=== PATIENT | male | born 1945 | race Caucasian/White ===

== ENCOUNTER → 2018-04-02 | Outpatient (CLI) | payer MEDICARE, OTHER ==
--- NOTE | 2018-04-02 13:49 | MRI ---
EXAM DESCRIPTION: Lumbar Spine w/o Contrast CLINICAL HISTORY: 72 years Male, RADICULOPATHY COMPARISON: None available. TECHNIQUE: Multiplanar multiecho imaging of the lumbar spine was performed without intravenous contrast administration. FINDINGS: There is straightening of the normal lordotic curvature of the lumbar spine. The vertebral body heights are well-maintained with no acute compression deformity. Multilevel intervertebral disc space narrowing is noted. The conus medullaris terminates at T12-L1 intervertebral disc space. The visualized spinal cord demonstrates no signal abnormality. Grade 1/2 anterolisthesis of L5 or S1 secondary to bilateral pars and articular is defects. L1-L2: No disc bulge. No significant canal stenosis or neural foraminal narrowing. L2-L3: No disc bulge. No significant canal stenosis or neural foraminal narrowing. L3-L4: No disc bulge. No significant canal stenosis or neural foraminal narrowing. L4-L5: Mild bilateral neural foraminal narrowing is noted secondary to facet arthropathy. L5-S1: No significant canal stenosis. There is moderate to severe bilateral neural foraminal narrowing. The visualized prevertebral and paravertebral soft tissues appear unremarkable. IMPRESSION: Grade 1/2 anterolisthesis of L5 over S1 secondary to bilateral pars interarticularis defects. There is resultant moderate to severe bilateral neural foraminal narrowing at this level. Electronically signed by: Tatianna Morgan MD 04/02/2018 1:47 PM CDT
== END ==
LOC: MRI 06:51
DX: M54.16 Radiculopathy, lumbar region (principal); M43.16 Spondylolisthesis, lumbar region

== ENCOUNTER → 2019-09-08 | Outpatient (CLI) | payer MEDICARE, OTHER | LOC: GMAL 10:40 | PROVIDERS: ATTEND Family Medicine | DX: E53.8 Deficiency of other specified B group vitamins (principal); E55.9 Vitamin D deficiency, unspecified; R53.83 Other fatigue; E11.9 Type 2 diabetes mellitus without complications; Z12.5 Encounter for screening for malignant neoplasm of prostate; Z79.899 Other long term (current) drug therapy | CPT/HCPCS: 82306; 82607; 84443; G0103 ==

== ENCOUNTER → 2019-09-14 | Outpatient (CLI) | payer MEDICARE, OTHER ==
--- NOTE | 2019-09-15 07:42 | US ---
EXAM DESCRIPTION: Liver: ULTRASOUND. CLINICAL HISTORY: Abnormal results of liver function studies COMPARISON: None. TECHNIQUE: Transabdominal scannin-dimensional and Doppler modes. FINDINGS: Gallbladder: Surgically absent. No fluid in the gallbladder fossa. Non-tender with transducer pressure. Common bile duct: caliber 6.6 mm within normal limits post cholecystectomy. Liver: Diffuse increased echogenicity; contour liver capsule smooth where seen. Hypoechoic 1.2 x 0.9 cm mass in the left kidney with echogenicity focus in the anterior aspect. Not vascular. No fluid around the liver. Intrahepatic biliary ducts normal caliber. Doppler hepatopedal flow portal vein. 1.2 cm normal caliber. Long axis right lobe 15.7 cm. Pancreas: normal size and echogenicity. Duct not seen. Right kidney: long axis measures 11.0 cm. Increased cortical echogenicity but less than that of the liver. Normal cortical thickness. . 5.2 x 5.0 x 4.8 cm anechoic circumscribed mass with thin balbuena and posterior acoustic enhancement on the upper pole a second cyst measures less than a centimeter. The larger cyst also demonstrates internal echoes. No hydronephrosis. Aorta proximal: 2.0 cm normal caliber. IMPRESSION: 1. Previous cholecystectomy. Nontender. Common bile duct normal caliber postcholecystectomy. 2. Fatty liver normal size. 1.2 cm hypoechoic mass with calcification or echogenic material. 5.2 cm renal mass with internal echoes. Consider follow-up CT scan for liver and kidney noncontrast and triple phase postcontrast protocol. 3. Pancreas unremarkable. Normal caliber proximal aorta and IVC. Electronically signed by: Amandeep Sampson MD 09/15/2019 7:41 AM CDT
== END ==
LOC: US 08:07
PROVIDERS: ATTEND Family Medicine
DX: R94.5 Abnormal results of liver function studies (principal); K76.0 Fatty (change of) liver, not elsewhere classified; N28.9 Disorder of kidney and ureter, unspecified; Z90.49 Acquired absence of other specified parts of digestive tract

== ENCOUNTER → 2019-11-04 | Outpatient (CLI) | payer MEDICARE, OTHER ==
--- NOTE | 2019-11-05 13:40 | MRI ---
EXAM DESCRIPTION: Lumbar Spine w/o Contrast : Magnetic Resonance Imaging. CLINICAL HISTORY: LOW BACK PAIN COMPARISON: MRI scan lumbar spine without contrast March 2018. TECHNIQUE: Multiplanar, multiple standard sequences, non contrast MRI, lumbar spine. FINDINGS: L5-S1: The disc is well visualized on axial T2 series 501, image 3. Marked space loss and endplate moderate reactive changes and defects. Grade 2 anterolisthesis 11 mm with no significant change since the prior study. Bilateral L5 pars interarticulares spondylolysis is stable. Posterior height of the L5 vertebral body is 2.2 cm compared to 3 cm anteriorly this is stable since the prior study. Residual marrow edema in the posterior L5 vertebral body. Posterior disc remnant with minimal bulge is uncovered by the L5 vertebral body but no significant increase in bulging since the prior study. Minimal degenerative hypertrophic changes in the posterior elements: Facet joints and flavum ligaments, mostly in the joints. Canal is patent. Bilateral foraminal stenosis and compromise of the exiting L5 nerves is stable. Mild narrowing of bilateral subarticular recesses. L4-L5: Minimal disc desiccation with disc space preserved. No significant bulging. Mild degenerative hypertrophic changes in the posterior elements mostly in the ligaments. No canal stenosis. Mild to moderate bilateral foraminal narrowing. L3-L4: Normal signal in the disc with disc space preserved. No bulging. Minimal degenerative hypertrophic changes in the posterior elements. Mild narrowing of the left foramen and moderate narrowing of the right foramen. L2-L3: Disc space preserved and normal signal in the disc. Mild bilateral degenerative hypertrophic changes in the posterior elements. Canal is patent. Bilateral mild foraminal narrowing. L1-L2: Disc with normal signal and disc space preserved. Mild hypertrophic degenerative changes of the posterior elements but canal is patent. Bilateral foramina are patent. T12-L1: Disc with normal signal and disc space preserved. Anterior hypertrophic endplate margins and minimal disc bulge. No posterior bulge. Mild degenerative hypertrophy of the posterior elements but no canal stenosis. Bilateral foramina are patent. No scoliosis. Paravertebral soft tissues unremarkable. Distal cord normal signal and caliber. Normal marrow signal in the remaining vertebral bodies and the posterior elements. Vertebral bodies are not compressed at any level. IMPRESSION: 1. Significant disc desiccation and endplate reactive changes at L5-S1 with bilateral pars interarticulares L5 spondylolysis and grade 2 anterolisthesis. Stable since the prior study. Also loss of height of the posterior L5 vertebral body. No change from the prior study. Bilateral foraminal stenosis and compromise of the L5 nerve roots also stable since the prior study. 2. Minimal disc desiccation and disc space preserved at L4-L5 with no significant bulging. Bilateral mild to moderate foraminal narrowing. No change from the prior study. Remaining discs are unremarkable, though posterior elements show degenerative hypertrophy. No canal or foraminal stenosis at the remaining levels. Stable since the prior study. Electronically signed by: Amandeep Sampson MD 11/05/2019 1:38 PM [facility]
== END ==
LOC: MRI 07:33
PROVIDERS: ATTEND Family Medicine
DX: M51.36 Other intervertebral disc degeneration, lumbar region (principal); M51.37 Other intervertebral disc degeneration, lumbosacral region; M47.896 Other spondylosis, lumbar region; M48.061 Spinal stenosis, lumbar region without neurogenic claudication

== ENCOUNTER → 2019-11-07 | Outpatient (CLI) | payer MEDICARE, OTHER ==
--- NOTE | 2019-11-07 10:50 | MRI ---
EXAM DESCRIPTION: Cervical Spine CLINICAL HISTORY: CERVICAL RADICULOPATHY COMPARISON: None Available TECHNIQUE: Multiplanar multi sequence noncontrast imaging FINDINGS: There is good alignment of the cervical spine. There is no vertebral abnormality. Craniocervical junction and the cord are unremarkable. No extra spinous abnormality is detected. C2-3: Unremarkable. C3-4: The disc is desiccated. A central 2.2 mm disc bulge is evident. No neural foraminal disease of significance is detected. C4-5: The disc is desiccated. Central annular bulge is evident. No neural foraminal disease of significance is observed. Some facet joint arthritis is seen. C5-6: The disc is desiccated. Loss of disc height is observed. Endplate degenerative changes are observed. Anterior osteophyte formation is observed. A central annular bulge is noted. The neural foramina are preserved. C6-7: The disc is desiccated. Loss of disc height is observed. A central annular bulge is evident. Bilateral neural foraminal narrowing is observed as result of facet joint arthritis. C7-T1: Unremarkable. IMPRESSION: 1. A central 2.2 mm disc bulge is evident at the C3-4 level. 2. Central annular bulges are seen at the C4-5 C5-6 and C6-7 levels. 3. Neural foraminal narrowing is observed at the C6-7 level as result of facet joint arthritis. Electronically signed by: Surya Reyna MD 11/07/2019 10:48 AM [facility]
== END ==
LOC: MRI 07:38
PROVIDERS: ATTEND Family Medicine
DX: M50.81 Other cervical disc disorders, high cervical region (principal); M50.821 Other cervical disc disorders at C4-C5 level; M50.822 Other cervical disc disorders at C5-C6 level; M50.823 Other cervical disc disorders at C6-C7 level; M46.92 Unspecified inflammatory spondylopathy, cervical region

== ENCOUNTER → 2019-12-20 | Outpatient (CLI) | payer MEDICARE, OTHER ==
--- NOTE | 2019-12-21 09:44 | CT ---
EXAM DESCRIPTION: Abdomen w/wo Contrast CLINICAL HISTORY: 74 years Male, RENAL AND LIVER LESIONS TECHNIQUE: This exam was performed according to our departmental dose-optimization program, which includes automated exposure control, adjustment of the mA and/or kV according to patient size and/or use of iterative reconstruction technique. COMPARISON: 09/14/2019 FINDINGS: Visualized lung bases are grossly unremarkable. Hepatic steatosis. Small benign scattered hepatic cysts and hypoattenuating lesions which are too small to definitively characterize. There is a 1 cm nonenhancing left hepatic lobe cyst compatible with the findings on the prior ultrasound. No suspicious hepatic lesion identified. No biliary dilatation. The portal vein is patent. Cholecystectomy. The spleen, pancreas and adrenal glands are unremarkable. Nonenhancing exophytic interpolar right renal cyst measuring 1.3 cm. Exophytic superior right renal cyst measuring 5.3 cm, with a thin internal septation and associated linear calcifications. No solid enhancing renal mass identified. Symmetric renal parenchymal enhancement. No hydronephrosis. No urolithiasis. No urothelial lesion identified. Visualized bowel is normal in caliber without evidence of obstruction or focal inflammatory change. Normal appendix. No adenopathy. No focal fluid collection. No free air. Normal caliber abdominal aorta. Mild diffuse atherosclerotic disease. No acute or suspicious osseous abnormality. Scattered degenerative changes present. Bilateral L5 pars defects with associated anterolisthesis. IMPRESSION: 1. Bosniak 2F right renal cystic lesion measuring 5.3 cm. 2. Nonenhancing hepatic cysts and hypoattenuating lesions which are too small to definitively characterize. No suspicious hepatic lesion identified. 3. Steatosis. Electronically signed by: Tra Torres MD 12/21/2019 9:42 AM [employer]
== END ==
LOC: US 09:33
PROVIDERS: ATTEND Family Medicine
DX: N28.89 Other specified disorders of kidney and ureter (principal); K76.89 Other specified diseases of liver

== ENCOUNTER → 2020-09-26 | Outpatient (CLI) | payer MEDICARE, OTHER | LOC: GMAL 16:50 | PROVIDERS: ATTEND Family Medicine | DX: E53.8 Deficiency of other specified B group vitamins (principal); E03.9 Hypothyroidism, unspecified; E55.9 Vitamin D deficiency, unspecified; E11.9 Type 2 diabetes mellitus without complications; I10 Essential (primary) hypertension; E78.2 Mixed hyperlipidemia ==

== ENCOUNTER → 2020-10-30 | Outpatient (CLI) | payer MEDICARE, OTHER | LOC: GMAL 10:53 | PROVIDERS: ATTEND Family Medicine | DX: E29.1 Testicular hypofunction (principal) ==

== ENCOUNTER 2020-11-12 07:45 | Emergency (ER) | payer MEDICARE, OTHER ==
[2020-11-12] MEDS ORDERED: KETOROLAC TROMETHAMINE INJ 60 MG/2 ML VIAL IM ONE (08:15)
[2020-11-12] MEDS ORDERED: predniSONE 20 MG TAB PO ONE (08:15)
[2020-11-12] MEDS ORDERED: COLCHICINE 0.6 MG TAB PO ONE (08:16)
--- NOTE | 2020-11-12 08:20 | RAD ---
EXAM DESCRIPTION: Ankle,Left 2 Views CLINICAL HISTORY: 75 years Male, pain 5 d, 1st metatarsal, ankle COMPARISON: None. FINDINGS: Two views of the left ankle show no acute fracture or malalignment. Vascular calcifications. Calcaneal spurring. The tibiotalar joint space and talar dome are well-maintained. IMPRESSION: Vascular calcification and calcaneal spurring without acute left ankle abnormality. Electronically signed by: Catalino Chinchilla MD 11/12/2020 8:18 AM [facility]
--- NOTE | 2020-11-12 08:21 | RAD ---
EXAM DESCRIPTION: Foot,Left 3 Views CLINICAL HISTORY: 75 years Male, pain 5 d, 1st metatarsal, ankle COMPARISON: None. FINDINGS: Three views of the left foot show no acute fracture or malalignment. Vascular calcifications. Calcaneal enthesophyte formation at the plantar fascia and Achilles tendon insertions. First MTP joint space narrowing. No radiopaque foreign body or soft tissue gas. IMPRESSION: Degenerative changes, vascular calcifications and calcaneal spurring. No acute left foot abnormality. Electronically signed by: Catalino Chinchilla MD 11/12/2020 8:19 AM [facility]
--- NOTE | 2020-11-12 08:35 | ED.PDOC ---
History of Present Illness - General Chief Complaint: General Stated Complaint: left foot pain X 5 days Time Seen by Provider: 11/12/20 07:46 Source: patient Exam Limitations: no limitations - History of Present Illness Initial Comments: The patient is a 75-year-old male presented emergency room secondary to pain in his left foot. He has had pain for about 5 or 6 days. He reports that he believes it started after he stepped on a rock around that timeframe. Questionable history of gout in the past. He is a diabetic. He does have poor renal function chronically. No fever. He does have the worst of the pain at the first metatarsophalangeal joint. There is significant erythema and exquisite tenderness to palpation there. A cool compress made the pain worse. He also has some pain around the ankle bilaterally on the left as well. No erythema however and no significant swelling. Pain is worse with movement of both. Timing/Duration: 1 week Severity: severe Improving Factors: immobilization Worsening Factors: movement Associated Symptoms: denies symptoms Allergies/Adverse Reactions: Allergies Tamsulosin [From Flomax] Allergy (Verified 11/12/20 08:11) Home Medications: Ambulatory Orders Anastrozole [Arimidex] 1 mg PO WKLY 11/12/20 Aspirin [Aspirin 81 Low Dose] 81 mg PO DAILY 11/12/20 Doxazosin Mesylate [Doxazosin] 2 mg PO TID 11/12/20 Glipizide 10 tablet PO BID 11/12/20 Insulin Glargine [Lantus Solostar] 20 unit SUBCU DAILY 11/12/20 Levothyroxine Sodium 88 mcg PO DAILY 11/12/20 Pravastatin Sodium 20 mg PO WKLY 11/12/20 predniSONE [Prednisone] 20 mg PO DAILY #5 tab 11/12/20 Review of Systems - Review of Systems Constitutional: States: no symptoms reported EENTM: States: no symptoms reported Respiratory: States: no symptoms reported Cardiology: States: no symptoms reported Gastrointestinal/Abdominal: States: no symptoms reported Genitourinary: States: no symptoms reported Musculoskeletal: States: see HPI Skin: States: see HPI Neurological: States: no symptoms reported Endocrine: States: no symptoms reported All other Systems: No Change from Baseline Past Medical History (General) - Patient Medical History Hx Seizures: No Hx Stroke: No Hx Dementia: No Hx Asthma: No Hx of COPD: No Hx Cardiac Disorders: No Hx Congestive Heart Failure: No Hx Pacemaker: No Hx Hypertension: Yes Hx Thyroid Disease: No Hx Diabetes: Yes Hx Gastroesophageal Reflux: No Hx Renal Disease: No Hx Cancer: No Hx of HIV: No Hx MRSA: No Surgical History: tonsillectomy - Vaccination History Hx Tetanus, Diphtheria Vaccination: Yes Hx Influenza Vaccination: Yes Hx Pneumococcal Vaccination: Yes - Social History Hx Tobacco Use: Yes Hx Chewing Tobacco Use: Yes Hx Alcohol Use: Yes Family Medical History - Family History Mother Family History: Unknown Living Status: Unknown Physical Exam - Physical Exam General Appearance: Alert, No apparent distress Eye Exam: bilateral normal Ears, Nose, Throat: hearing grossly normal, normal pharynx Neck: non-tender, supple Respiratory: no respiratory distress, no accessory muscle use Cardiovascular/Chest: normal peripheral pulses, no edema Peripheral Pulses: radial,right: 2+, radial,left: 2+, dorsalis pedis,right: 2+, dorsalis pedis,left: 2+ Gastrointestinal/Abdominal: non tender, soft Rectal Exam: deferred Extremity: no calf tenderness, normal capillary refill, other - See history of present illness Neurologic: pay per click strategist II-XII nml as tested, alert, normal mood/affect, oriented x 3 Skin Exam: normal color - Except for erythema around the first metatarsophalangeal joint of the left foot Comments: Vital Signs - 24 hr 11/12/20 08:02 Temperature 98.6 F Pulse Rate [ 107 H Left Radial] Respiratory 20 Rate Blood Pressure 153/110 [Right Arm] O2 Sat by Pulse 94 L Oximetry Progress - Progress Progress: 11/12/20 08:36 The patient is a 75-year-old male presented emergency room secondary to pain in the left foot and ankle of about 5 days duration. While he may have a mild sprain from an injury 5 days ago, I believe most of his pain is likely from gout. He needs to increase his fluid intake. He needs to keep the foot warm. Does need to do range of motion exercises. He needs to avoid any diuretics or water pills for the next few days. He is given a dose of colchicine and Toradol as well as a dose of prednisone here. The patient is a diabetic so he does need to monitor his blood sugars closely and adjust medications if needed. He will be written for 5 days of low-dose oral prednisone. I do want him to follow-up with his primary care doctor at the end of the week for repeat evaluation. ER warnings are given. Ambulate carefully. X-rays are reassuring. helder [email or web address] - Results/Orders Results/Orders: X-ray of the left ankle and foot show no evidence of acute pathology. There are significant arthritic changes and calcifications. - EKG/XRAY/CT CT Ordered: No CT Interpretation Call Back: No Departure - Departure Clinical Impression: Gout attack Qualifiers: Gout site: foot Disposition: Discharge to Home or Self Care Condition: Fair Departure Forms: ED Discharge - Pt. Copy, Patient Portal Self Enrollment Instructions: Gout (DC) Diet: diabetic diet, other - Low protein. Avoid red meat and alcohol. Activity: increase activity as tolerated Referrals: Surya Billy III, MD [Primary Care Provider] - 1-5 Days Prescriptions: predniSONE [Prednisone] 20 mg PO DAILY #5 tab Home Medications: Ambulatory Orders Anastrozole [Arimidex] 1 mg PO WKLY 11/12/20 Aspirin [Aspirin 81 Low Dose] 81 mg PO DAILY 11/12/20 Doxazosin Mesylate [Doxazosin] 2 mg PO TID 11/12/20 Glipizide 10 tablet PO BID 11/12/20 Insulin Glargine [Lantus Solostar] 20 unit SUBCU DAILY 11/12/20 Levothyroxine Sodium 88 mcg PO DAILY 11/12/20 Pravastatin Sodium 20 mg PO WKLY 11/12/20 predniSONE [Prednisone] 20 mg PO DAILY #5 tab 11/12/20 Additional Instructions: The patient is a 75-year-old male presented emergency room secondary to pain in the left foot and ankle of about 5 days duration. While he may have a mild sprain from an injury 5 days ago, I believe most of his pain is likely from gout. He needs to increase his fluid intake. He needs to keep the foot warm. Does need to do range of motion exercises. He needs to avoid any diuretics or water pills for the next few days. He is given a dose of colchicine and Toradol as well as a dose of prednisone here. The patient is a diabetic so he does need to monitor his blood sugars closely and adjust medications if needed. He will be written for 5 days of low-dose oral prednisone. I do want him to follow-up with his primary care doctor at the end of the week for repeat evaluation. ER warnings are given. Ambulate carefully. X-rays are reassuring.
[2020-11-12 09:46] VITALS: BP 129/77; TEMP 97.7; O2SAT 95
== END 2020-11-12 09:15 | disposition home or self-care (01) ==
LOC: ER 07:45
DX: M10.9 Gout, unspecified (principal); E11.9 Type 2 diabetes mellitus without complications; I10 Essential (primary) hypertension; Z87.891 Personal history of nicotine dependence; Z79.4 Long term (current) use of insulin; Z79.82 Long term (current) use of aspirin; Z79.899 Other long term (current) drug therapy
CPT/HCPCS: 73600; 73630; J1885; J7512

== ENCOUNTER 2020-12-03 17:29 | Emergency (ER) | payer MEDICARE, OTHER ==
[2020-12-03] MEDS ORDERED: ASPIRIN (CHEWABLE) 81 MG TAB PO ONE (17:42)
--- NOTE | 2020-12-03 17:46 | ED.PDOC ---
History of Present Illness - General Stated Complaint: Chest pain Time Seen by Provider: 12/03/20 17:40 Source: patient, family Exam Limitations: no limitations Additional Information: Patient complains of bilateral lower chest pain which is pressure-like in nature for the last 2 weeks. It has been constant for the last week. He has had no cough. He has complained of low-grade temperature. He denies diaphoresis. He denies upper respiratory symptoms. He does complain of diminished appetite and general weakness. Denies abdominal pain nausea vomiting or diarrhea. Patient denies prior history of coronary artery disease. He does have diabetes and hypertension and elevated cholesterol. He had a brother who he feels from a heart attack in the last few weeks. - History of Present Illness Timing/Duration: 1 week Severity: moderate Improving Factors: nothing Worsening Factors: nothing Associated Symptoms: loss of appetite Allergies/Adverse Reactions: Allergies Tamsulosin [From Flomax] Allergy (Verified 12/03/20 18:00) Home Medications: Ambulatory Orders Anastrozole [Arimidex] 1 mg PO WKLY 11/12/20 Aspirin [Aspirin 81 Low Dose] 81 mg PO DAILY 11/12/20 Doxazosin Mesylate [Doxazosin] 2 mg PO TID 11/12/20 Glipizide 10 tablet PO BID 11/12/20 Insulin Glargine [Lantus Solostar] 20 unit SUBCU DAILY 11/12/20 Levothyroxine Sodium 88 mcg PO DAILY 11/12/20 Pravastatin Sodium 20 mg PO WKLY 11/12/20 predniSONE [Prednisone] 20 mg PO DAILY #5 tab 11/12/20 Past Medical History (General) - Patient Medical History Hx Seizures: No Hx Stroke: No Hx Dementia: No Hx Asthma: No Hx of COPD: No Hx Cardiac Disorders: No Hx Congestive Heart Failure: No Hx Pacemaker: No Hx Hypertension: Yes Hx Thyroid Disease: No Hx Diabetes: Yes Hx Gastroesophageal Reflux: No Hx Renal Disease: No Hx Cancer: No Hx of HIV: No Hx MRSA: No - Vaccination History Hx Tetanus, Diphtheria Vaccination: Yes Hx Influenza Vaccination: Yes Hx Pneumococcal Vaccination: Yes - Social History Hx Tobacco Use: Yes Hx Chewing Tobacco Use: Yes Hx Alcohol Use: Yes Family Medical History - Family History Mother Family History: Unknown Living Status: Unknown Physical Exam - Physical Exam General Appearance: Alert Eye Exam: bilateral normal Ears, Nose, Throat: normal ENT inspection Neck: non-tender, full range of motion Respiratory: normal breath sounds Cardiovascular/Chest: normal peripheral pulses, regular rate, rhythm, no edema, systolic murmur - Holosystolic 3/6 murmur. This is pre-existing per the patient. Gastrointestinal/Abdominal: normal bowel sounds, non tender, soft Back Exam: normal inspection Extremity: normal range of motion, non-tender, no pedal edema, no calf tenderness Neurologic: hot kettle tender II-XII nml as tested, no motor/sensory deficits Skin Exam: normal color Progress - Progress Progress: 12/03/20 19:32 Patient given aspirin 324 mg by mouth and nitroglycerin 0.4Milligrams sublingually on admission. At this time the patient denies any chest pain. He does complain of pain in his right shoulder due to an injury occurring last week. Lungs are clear heart is regular and the left shoulder is tender over the deltoid with pain on movement. Patient's multiple risk factors are concerning for the possibility of coronary artery disease. Unfortunately there are no hospital beds available within the [facility] area. Multiple hospital systems have been called previously today for other patients and there are no beds available. Patient has a mild elevation of D-dimer but his symptoms are not suggestive of a pulmonary embolus. The difficulties facing evaluation and disposition were discussed with the patient and his . The current plan is to do serial enzymes on him and then reassess his risk for coronary disease and decide whether he should wait for a bed or whether he can be discharged for follow-up with multiple spindle screw machine operator. 12/03/20 23:23 Patient is pain-free at this time. The third set of cardiac enzymes are negative.After extended discussion with the patient and his they prefer to go home and see their multiple spindle screw machine operator. They understand that usually this patient would be admitted for cardiology consultation but since there is no evidence of acute myocardial infarction and the patient has a multiple spindle screw machine operator for follow-up they prefer to be discharged because there are no beds available in the extended region.Signs and symptoms of acutely worsening acute urinary symptoms were discussed with the patient and his and they will return if present. - Results/Orders Results/Orders: 12/03/20 17:42 CARDIAC ENZYME GROUP Stat COMPLETE METABOLIC PROFILE Stat D-DIMER,QUANTITATIVE Stat PARTIAL THROMBOPLASTIN TIME Stat PROTHROMBIN TIME Stat CBC (AUTOMATED) W/AUTO DIFF Stat RAPID SARS-CoV-2 RNA Stat Chest,1 View [RAD] Stat 12/03/20 17:43 EKG Assessment ONCE 12/03/20 17:45 EKG STAT 12/03/20 17:45 EKG STAT Laboratory Results - last 24 hr 12/03/20 12/03/20 12/03/20 17:51 17:51 17:51 WBC 6.3 RBC 4.58 L Hgb 15.0 Hct 43.7 MCV 95.3 H MCH 32.7 H MCHC 34.3 RDW 12.7 Plt Count 126 L MPV 7.6 Absolute Neuts (auto) 4.30 Absolute Lymphs (auto) 1.20 Absolute Monos (auto) 0.50 Absolute Eos (auto) 0.20 Absolute Basos (auto) 0.00 Neutrophils % 68.2 Lymphocytes % 19.5 L Monocytes % 8.1 Eosinophils % 3.6 Basophils % 0.6 PT 10.5 INR 1.06 PTT (SP) 24.1 D-Dimer, Quantitative 593.0 H Sodium 134 L Potassium 4.0 Chloride 97 L Carbon Dioxide 28 Anion Gap 13.0 BUN 37 H Creatinine 2.06 H BUN/Creatinine Ratio 18.0 Random Glucose 117 H Serum Osmolality 278.0 Calcium 13.3 H* Total Bilirubin 0.6 AST 28 ALT 32 Alkaline Phosphatase 97 Creatine Kinase 91 CK-MB (CK-2) 3.6 CK-MB (CK-2) % Not Reportable Troponin I 0.05 Serum Total Protein 7.2 Albumin 3.8 Globulin 3.4 Albumin/Globulin Ratio 1.1 Abnormal Lab Results 12/03/20 12/03/20 12/03/20 17:51 17:51 17:51 RBC 4.58 L MCV 95.3 H MCH 32.7 H Plt Count 126 L Lymphocytes % 19.5 L D-Dimer, Quantitative 593.0 H Sodium 134 L Chloride 97 L BUN 37 H Creatinine 2.06 H Random Glucose 117 H Calcium 13.3 H* 12/03/20 17:45 EKG STAT 12/03/20 21:00 EKG STAT 12/03/20 21:41 EKG Assessment ONCE 12/03/20 23:00 EKG STAT Laboratory Results - last 24 hr 12/03/20 12/03/20 12/03/20 17:51 17:51 17:51 WBC 6.3 RBC 4.58 L Hgb 15.0 Hct 43.7 MCV 95.3 H MCH 32.7 H MCHC 34.3 RDW 12.7 Plt Count 126 L MPV 7.6 Absolute Neuts (auto) 4.30 Absolute Lymphs (auto) 1.20 Absolute Monos (auto) 0.50 Absolute Eos (auto) 0.20 Absolute Basos (auto) 0.00 Neutrophils % 68.2 Lymphocytes % 19.5 L Monocytes % 8.1 Eosinophils % 3.6 Basophils % 0.6 PT 10.5 INR 1.06 PTT (SP) 24.1 D-Dimer, Quantitative 593.0 H Sodium 134 L Potassium 4.0 Chloride 97 L Carbon Dioxide 28 Anion Gap 13.0 BUN 37 H Creatinine 2.06 H BUN/Creatinine Ratio 18.0 Random Glucose 117 H Serum Osmolality 278.0 Calcium 13.3 H* Total Bilirubin 0.6 AST 28 ALT 32 Alkaline Phosphatase 97 Creatine Kinase 91 CK-MB (CK-2) 3.6 CK-MB (CK-2) % Not Reportable Troponin I 0.05 Serum Total Protein 7.2 Albumin 3.8 Globulin 3.4 Albumin/Globulin Ratio 1.1 12/03/20 12/03/20 20:58 22:53 WBC RBC Hgb Hct MCV MCH MCHC RDW Plt Count MPV Absolute Neuts (auto) Absolute Lymphs (auto) Absolute Monos (auto) Absolute Eos (auto) Absolute Basos (auto) Neutrophils % Lymphocytes % Monocytes % Eosinophils % Basophils % PT INR PTT (SP) D-Dimer, Quantitative Sodium Potassium Chloride Carbon Dioxide Anion Gap BUN Creatinine BUN/Creatinine Ratio Random Glucose Serum Osmolality Calcium Total Bilirubin AST ALT Alkaline Phosphatase Creatine Kinase 73 70 CK-MB (CK-2) 2.9 2.8 CK-MB (CK-2) % Not Reportable Not Reportable Troponin I 0.05 0.05 Serum Total Protein Albumin Globulin Albumin/Globulin Ratio Initial electrocardiogram showed sinus tachycardia, 120 bpm,OH interval 180 ms, QRS duration 82 ms, QTC 457 ms, questionable minimal ST depression in leads II, III and V5, no ST elevation. A second electrocardiogram performed2-1/2 hours later showed a ventricular rate of 96, with a normal OH interval and a QRS of 92. QTc 396, normal sinus rhythm, no ST segment abnormalities. There was some inversion of T waves in leads V4 and V5.No ST segment elevation. XAM DESCRIPTION: Chest,1 View CLINICAL HISTORY: Chest pain COMPARISON: None FINDINGS: Cardiac silhouette is within normal limits. EKG leads project over the chest. There is no focal parenchymal or pleural disease. There is no acute osseous process visualized. IMPRESSION: No evidence of acute cardiopulmonary disease. Electronically signed by: Ivan Majano MD 12/03/2020 6:05 PM SOCIAL WORK MANAGER Vital Signs - 24 hr 12/03/20 12/03/20 12/03/20 17:59 18:02 19:00 Temperature 97.8 F Pulse Rate [ 94 H 110 H 80 Left Radial] Respiratory 16 14 Rate Blood Pressure 141/108 137/90 [Left Arm] O2 Sat by Pulse 95 98 Oximetry 12/03/20 12/03/20 12/03/20 19:28 20:00 21:00 Temperature 98.0 F Pulse Rate [ 91 H 91 H Left Radial] Respiratory 14 14 Rate Blood Pressure 107/70 117/70 [Left Arm] O2 Sat by Pulse 93 L 91 L Oximetry 12/03/20 12/03/20 22:00 23:39 Temperature 97.9 F Pulse Rate [ 86 82 Left Radial] Respiratory 14 14 Rate Blood Pressure 133/83 128/78 [Left Arm] O2 Sat by Pulse 96 96 Oximetry Departure - Departure Clinical Impression: Chest pain Time of Disposition: 23:26 Disposition: Discharge to Home or Self Care Condition: Good Departure Forms: ED Discharge - Pt. Copy Instructions: Angina (DC), Chest Pain (DC) Diet: resume usual diet Referrals: Surya Billy III, MD [Primary Care Provider] - 1-2 Weeks Home Medications: Ambulatory Orders Anastrozole [Arimidex] 1 mg PO WKLY 11/12/20 Aspirin [Aspirin 81 Low Dose] 81 mg PO DAILY 11/12/20 Doxazosin Mesylate [Doxazosin] 2 mg PO TID 11/12/20 Glipizide 10 tablet PO BID 11/12/20 Insulin Glargine [Lantus Solostar] 20 unit SUBCU DAILY 11/12/20 Levothyroxine Sodium 88 mcg PO DAILY 11/12/20 Pravastatin Sodium 20 mg PO WKLY 11/12/20 predniSONE [Prednisone] 20 mg PO DAILY #5 tab 11/12/20 Additional Instructions: Call your multiple spindle screw machine operator in the morning and report All symptoms and results of your emergency department visit.If you have worsening chest pain trouble arabella athing heavy sweating or passing out return to the emergency department.
[2020-12-03] MEDS ORDERED: NITROGLYCERIN 0.4 MG 25 EA TAB SL ONE (17:47)
--- NOTE | 2020-12-03 18:07 | RAD ---
EXAM DESCRIPTION: Chest,1 View CLINICAL HISTORY: Chest pain COMPARISON: None FINDINGS: Cardiac silhouette is within normal limits. EKG leads project over the chest. There is no focal parenchymal or pleural disease. There is no acute osseous process visualized. IMPRESSION: No evidence of acute cardiopulmonary disease. Electronically signed by: Ivan Majano MD 12/03/2020 6:05 PM MOLD CLEANER
[2020-12-03] MEDS ORDERED: ONDANSETRON ODT 8 MG TAB SL ONE (19:36)
[2020-12-03] MEDS ORDERED: ACETAMINOPHEN 325 MG TAB PO ONE (19:36)
[2020-12-03] MEDS ORDERED: NITROGLYCERIN 2% 1 GM UD TOP ONE (20:07)
[2020-12-03 22:05] VITALS: O2SAT 96
[2020-12-03 23:40] VITALS: BP 128/78; TEMP 97.9
== END 2020-12-03 23:38 | disposition home or self-care (01) ==
LOC: ER 17:29
DX: R07.9 Chest pain, unspecified (principal); R00.0 Tachycardia, unspecified; E11.9 Type 2 diabetes mellitus without complications; I10 Essential (primary) hypertension; E78.00 Pure hypercholesterolemia, unspecified; Z82.49 Family history of ischemic heart disease and other diseases of the circulatory system; Z20.822 Contact with and (suspected) exposure to COVID-19; Z79.4 Long term (current) use of insulin; Z79.899 Other long term (current) drug therapy; Z87.891 Personal history of nicotine dependence; Z88.8 Allergy status to other drugs, medicaments and biological substances

== ENCOUNTER 2020-12-07 10:27 | Emergency (ER) | payer MEDICARE, OTHER ==
--- NOTE | 2020-12-07 10:54 | ED.PDOC ---
History of Present Illness - General Chief Complaint: Abdominal Pain Stated Complaint: Pr states he is impacted, rectal bleeding with BM Time Seen by Provider: 12/07/20 10:34 - History of Present Illness Initial Comments: 75-year-old male positive past medical history presents to ED complaining of several days of progressing constipation. Patient has associated mild bright red blood per rectum but states this is common with his bowel movements due to the amount he has to strain in the level of constipation. He states the blood picked up after performing an enema at home and that he had no relief with use of the enema. He has mild rectal discomfort described as pressure without pain. Denies associated nausea/vomiting, fever/chills, chest pain, shortness of breath, abdominal pain. Patient denies any other symptoms and or complaints at this time. Allergies/Adverse Reactions: Allergies Tamsulosin [From Flomax] Allergy (Verified 12/07/20 10:54) Home Medications: Ambulatory Orders Anastrozole [Arimidex] 1 mg PO WKLY 11/12/20 Aspirin [Aspirin 81 Low Dose] 81 mg PO DAILY 11/12/20 Doxazosin Mesylate [Doxazosin] 2 mg PO TID 11/12/20 Glipizide 10 tablet PO BID 11/12/20 Insulin Glargine [Lantus Solostar] 20 unit SUBCU DAILY 11/12/20 Levothyroxine Sodium 88 mcg PO DAILY 11/12/20 Pravastatin Sodium 20 mg PO WKLY 11/12/20 predniSONE [Prednisone] 20 mg PO DAILY #5 tab 11/12/20 Polyethylene Glycol 3350 [Miralax] 17 gm PO DAILY 15 Days #238 bottle 12/07/20 Review of Systems - Review of Systems Constitutional: Denies: chills, fever EENTM: Denies: nose congestion, throat pain Respiratory: Denies: cough, short of breath Cardiology: Denies: chest pain Gastrointestinal/Abdominal: States: constipation. Denies: abdominal pain, diarrhea, nausea, vomiting Genitourinary: States: other - rectal pressure without pain and + bright red blood per rectum without gross hematochezia or melena. Denies: dysuria, frequency Musculoskeletal: Denies: back pain Skin: Denies: change in color, rash Neurological: Denies: headache Past Medical History (General) - Patient Medical History Hx Seizures: No Hx Stroke: No Hx Dementia: No Hx Asthma: No Hx of COPD: No Hx Cardiac Disorders: No Hx Congestive Heart Failure: No Hx Pacemaker: No Hx Hypertension: Yes Hx Thyroid Disease: No Hx Diabetes: Yes Hx Gastroesophageal Reflux: No Hx Renal Disease: No Hx Cancer: No Hx of HIV: No Hx MRSA: No - Vaccination History Hx Tetanus, Diphtheria Vaccination: Yes Hx Influenza Vaccination: Yes Hx Pneumococcal Vaccination: Yes - Social History Hx Tobacco Use: Yes Hx Chewing Tobacco Use: Yes Hx Alcohol Use: Yes Family Medical History - Family History Mother Family History: Unknown Living Status: Unknown Physical Exam - Physical Exam General Appearance: Alert, No apparent distress Eye Exam: bilateral normal Ears, Nose, Throat: normal ENT inspection Neck: full range of motion, supple Respiratory: lungs clear, normal breath sounds, no respiratory distress, no accessory muscle use Cardiovascular/Chest: regular rate, rhythm, no edema, no JVD, systolic murmur Gastrointestinal/Abdominal: normal bowel sounds, non tender, soft Rectal Exam: other - deferred Back Exam: no CVA tenderness Extremity: no pedal edema Neurologic: alert, normal mood/affect, oriented x 3 Skin Exam: normal color, warm/dry, other - no rash Progress - Progress Progress: Everett Adams DO Emergency Medicine Physician [facility][id number] Appropriate PPE of surgical mask, gown, gloves, and eye protection (if encounter >5 minutes) utilized with every patient encounter; in accordance with hospital policy. Presents for constipation. I will perform imaging, provide appropriate pharmacotherapy, and continue to monitor/reassess. Dispo will depend on imaging results and overall course in ED; however, discharge home is expected with f/u, education, and possible rx. 12/07/20 12:58 Rechecked pt. NAD, VSS, resting comfortably in bed and is feeling much better. He has successfully had a large BM and states he feels much better with no further rectal pressure. Stool was large and soft. Rectal exam deferred. I have discussed radiology results, my clinical impression, and diagnosis. I have also discussed plan for discharge home with f/u, education, and prescription medications. ED return precautions provided. Pt voices understanding, agrees with plan, and all questions answered. - Results/Orders Results/Orders: EXAM DESCRIPTION: KUB CLINICAL HISTORY: constipation COMPARISON: None. IMPRESSION: Single AP supine view of the abdomen shows a nonspecific, nonobstructive bowel gas pattern. Mildly increased volume of formed stool throughout the colon is seen suggesting mild constipation or obstipation. Surgical clips from cholecystectomy are seen. The visualized lung bases are unremarkable. Small 3 to 4 mm calcifications to the right of the L1 transverse process could represent nephrolithiasis versus calcification in the bowel versus vascular calcifications. Electronically signed by: Irwin Sutherland MD 12/07/2020 11:32 AM [employer] Vital Signs - 24 hr 12/07/20 12/07/20 10:30 10:44 Temperature 97.9 F Pulse Rate [ 103 H 103 H Pulse ox] Respiratory 18 18 Rate Blood Pressure 115/74 [L arm] O2 Sat by Pulse 95 Oximetry Departure - Departure Clinical Impression: Constipation Qualifiers: Constipation type: other constipation type Qualified Code(s): K59.09 - Other constipation Time of Disposition: 13:02 Disposition: Discharge to Home or Self Care Condition: Excellent Departure Forms: ED Discharge - Pt. Copy, Patient Portal Self Enrollment Instructions: DI for Abdominal Pain-Adult, High Fiber Diet, Constipation, Adult (DC) Diet: other - High fiber diet Referrals: Surya Billy III, MD [Primary Care Provider] - 1 Week Prescriptions: Polyethylene Glycol 3350 [Miralax] 17 gm PO DAILY 15 Days #238 bottle Home Medications: Ambulatory Orders Anastrozole [Arimidex] 1 mg PO WKLY 11/12/20 Aspirin [Aspirin 81 Low Dose] 81 mg PO DAILY 11/12/20 Doxazosin Mesylate [Doxazosin] 2 mg PO TID 11/12/20 Glipizide 10 tablet PO BID 11/12/20 Insulin Glargine [Lantus Solostar] 20 unit SUBCU DAILY 11/12/20 Levothyroxine Sodium 88 mcg PO DAILY 11/12/20 Pravastatin Sodium 20 mg PO WKLY 11/12/20 predniSONE [Prednisone] 20 mg PO DAILY #5 tab 11/12/20 Polyethylene Glycol 3350 [Miralax] 17 gm PO DAILY 15 Days #238 bottle 12/07/20
--- NOTE | 2020-12-07 11:33 | RAD ---
EXAM DESCRIPTION: KUB CLINICAL HISTORY: constipation COMPARISON: None. IMPRESSION: Single AP supine view of the abdomen shows a nonspecific, nonobstructive bowel gas pattern. Mildly increased volume of formed stool throughout the colon is seen suggesting mild constipation or obstipation. Surgical clips from cholecystectomy are seen. The visualized lung bases are unremarkable. Small 3 to 4 mm calcifications to the right of the L1 transverse process could represent nephrolithiasis versus calcification in the bowel versus vascular calcifications. Electronically signed by: Irwin Sutherland MD 12/07/2020 11:32 AM RESIDENT CAREGIVER
[2020-12-07] MEDS ORDERED: LACTULOSE SYRUP 20 GM/30 ML UD PR ONE (12:08)
[2020-12-07] MEDS ORDERED: SCOPOLAMINE PATCH 1.5MG 1 EA TD ONE (12:16)
[2020-12-07] MEDS ORDERED: SODIUM CHLORIDE 0.9% 1000ML 1,000 ML IVS ONE (12:18)
[2020-12-07] MEDS ORDERED: DEXAMETHASONE INJ 10 MG/ML VIAL IV ONE (12:18)
[2020-12-07 13:21] VITALS: BP 118/84; TEMP 98.7; O2SAT 96
== END 2020-12-07 13:21 | disposition home or self-care (01) ==
LOC: ER 10:27
DX: K59.09 Other constipation (principal); K62.5 Hemorrhage of anus and rectum; E11.9 Type 2 diabetes mellitus without complications; I10 Essential (primary) hypertension; Z79.4 Long term (current) use of insulin; Z79.82 Long term (current) use of aspirin; Z79.899 Other long term (current) drug therapy

== ENCOUNTER → 2020-12-13 | Outpatient (CLI) | payer MEDICARE, OTHER | LOC: LAB.O 07:55 | PROVIDERS: ATTEND Family Medicine | DX: K76.89 Other specified diseases of liver (principal); E83.52 Hypercalcemia; R06.02 Shortness of breath; E29.1 Testicular hypofunction; R94.5 Abnormal results of liver function studies ==